=== PATIENT | female | born 1970 | race Caucasian/White ===

== ENCOUNTER 2017-06-29 14:13 | Emergency (ER) | payer BC, OTHER ==
[2017-06-29] MEDS: IBUPROFEN 600 MG TAB PO (18:26)
== END 2017-06-29 18:30 | disposition home or self-care (01) ==
LOC: FTE 14:13
DX: M94.0 Chondrocostal junction syndrome [Tietze] (principal)
CPT/HCPCS: 71045; 93005; 99284-25

== ENCOUNTER 2018-07-03 22:34 | Emergency (ER) | payer BC ==
[2018-07-04] MEDS: morphine 4 MG/ML VIAL IM (05:13)
[2018-07-04] MEDS: KETOROLAC 30 MG INJ IM (05:14)
[2018-07-04 05:26] LABS: ADD UMIC YES; UR ASCORBIC ACID NEGATIVE (NEGATIVE); UR BILIRUBIN (Dip) NEGATIVE (NEGATIVE); UR BLOOD (Dip) 1+ mg/dL (NEGATIVE); UR CLARITY SLIGHTLY CLOUDY (CLEAR); UR COLOR YELLOW (YELLOW); UR GLUCOSE (Dip) NEGATIVE (NEGATIVE); UR KETONES (Dip) NEGATIVE (NEGATIVE); UR LEUKOCYTE ESTERASE (Dip) 2+ Leu/ul (NEGATIVE); UR MUCUS FEW /HPF (NONE SEEN); UR NITRITE (Dip) NEGATIVE (NEGATIVE); UR RBC 3 /HPF (0-5); UR SPECIFIC GRAVITY (Dip) 1.023 (1.003-1.030); UR SQUAMOUS EPITHELIAL CELL MODERATE /HPF (FEW); UR TOTAL PROTEIN (Dip) NEGATIVE (NEGATIVE); UR UROBILINOGEN (Dip) NEGATIVE (NEGATIVE); UR WBC 4 /HPF (0-5)
== END 2018-07-04 06:34 | disposition home or self-care (01) ==
LOC: FTE 22:34
DX: S39.012A Strain of muscle, fascia and tendon of lower back, initial encounter (principal); M54.30 Sciatica, unspecified side; N39.0 Urinary tract infection, site not specified; X50.0XXA Overexertion from strenuous movement or load, initial encounter; Y92.9 Unspecified place or not applicable
CPT/HCPCS: 72100; 81001; 81025; 96372; 99284-25

== ENCOUNTER 2018-08-10 07:13 | Emergency (ER) | payer BC ==
[2018-08-10 08:17] LABS: ADD MAN DIFF? NO
[2018-08-10 08:19] LABS: WHITE BLOOD COUNT 5.9 10^3/ul (4.8-10.8)
[2018-08-10 08:19] LABS: BASOPHILS % 0.5 % (0.0-2.0); EOSINOPHILS % 0.2 % (0.0-7.0); HEMATOCRIT 40.8 % (37.0-47.0); HEMOGLOBIN 13.2 g/dl (12.0-16.0); LYMPHOCYTES % 34.2 % (15.0-51.0); MEAN CORPUSCULAR HEMOGLOBIN 28.4 pg (29.0-33.0); MEAN CORPUSCULAR HGB CONC 32.4 g/dl (32.0-37.0); MEAN CORPUSCULAR VOLUME 87.7 fl (82.0-101.0); MEAN PLATELET VOLUME 10.7 fl (7.4-10.4); MONOCYTE # 0.3 10^3/ul (0.3-0.9); MONOCYTES % 5.4 % (0.0-11.0); NEUTROPHIL # 3.5 10^3/ul (1.6-7.5); NEUTROPHILS % 59.5 % (39.0-77.0); PLATELET COUNT 273 10^3/UL (140-415); RED BLOOD COUNT 4.65 10^6/ul (4.20-5.40); RED CELL DISTRIBUTION WIDTH 13.1 % (11.5-14.5)
[2018-08-10 08:37] LABS: ANION GAP 9 (5-13); BLOOD UREA NITROGEN 13 mg/dl (7-20); CALCIUM 9.4 mg/dl (8.4-10.2); CARBON DIOXIDE 27 mmol/L (21-31); CHLORIDE 107 mmol/L (97-110); CREATININE 0.65 mg/dl (0.44-1.00); Estimated GFR > 60 mL/min (>60); GLUCOSE 112 mg/dl (70-220); POTASSIUM 4.3 mmol/L (3.5-5.1); SODIUM 143 mmol/L (135-144)
[2018-08-10 08:49] LABS: TROPONIN-I < 0.012 ng/ml (0.000-0.120)
[2018-08-10] MEDS: KETOROLAC 15 MG INJ IV (09:02)
== END 2018-08-10 10:00 | disposition home or self-care (01) ==
LOC: E/R 07:13
DX: I10 Essential (primary) hypertension (principal); R40.2142 Coma scale, eyes open, spontaneous, at arrival to emergency department; R40.2362 Coma scale, best motor response, obeys commands, at arrival to emergency department; R40.2252 Coma scale, best verbal response, oriented, at arrival to emergency department
CPT/HCPCS: 71045; 80048; 84484; 85025; 93005; 96374; 99285-25